=== PATIENT | male | born 1990 | race Asian ===

== ENCOUNTER 2024-11-29 12:38 | Outpatient (AMB) | payer OTHER, SELFPAY ==
--- NOTE | 2024-11-29 12:40 | MHC.PC.OV ---
Vital Signs 11/29/24 12:47 Height 5 ft 8 in Weight 170 lb 2 oz BMI 25.9 BP 114/73 Blood Pressure Location Lt brachial Position Sitting Respiration 16 Pulse 84 Pulse Source Pulse Oximeter Temp 97.8 F Temp Source Oral Pulse Oximetry (%) 98 Oxygen Delivery Method Room Air Intake Visit Reasons: headache, backache, neck pain/requesting blood wor Intake Note: patient here for new patient visit c/o headache, backache, neck pain and requesting labs Print Journalist Required: No Allergies No Known Allergies Allergy (Verified 11/29/24 12:55) Medication List - Last Reconciled 11/29/24 by Nicolás Cole CNP No Known Home Meds Tobacco use date assessed: 11/29/24 Dental Screening Dental Screen Date: 11/29/24 Did you have a dental visit in the last 12 months?: No Did you have a dental problem in the last 6 months where you did not have access to dental care?: No Was dental information given to patient?: Yes HPI HPI Comments History of Present Illness Details 34-year-old male presents to [facility] care. He is not on prescription medication. Relocated from [place] to [facility] a year ago. Prior PCP? - Dr. Mercy Damon, [place], [place] Last office visit/CPE/labs - About 2 years ago Acute issue(s) - None Past Medical History - None Surgical History - None Family History - Dad: DM - Mom: HTN Social History - Smokes 5 cigarettes daily for 10-12 years. Drinks 4-5 beers/shots of liquor once weekly. Vapes cannabis twice weekly - Has been making healthy dietary choices. Active but does not exercise. Generally sleep well Health maintenance - Last eye exam was several years ago. Referred to Ophthalmology for an eye exam - Last dental visit was about 2 years ago; encouraged to schedule an appointment with his dentist for routine dental care - Last tetanus vaccine was 2-3 years ago with former PCP. Record not currently available - Has not been vaccinated for the flu this season; declines vaccination Specialists - None PFSH Family History (Updated 11/29/24 @ 12:52 by Cyn Champion MA) Mother High blood pressure Father Diabetes Social History Housing: House Patient Tobacco Use Status: Current everyday Tobacco user Cigarettes Per Day: 5 e-Cigarette/Vaping Use: Never Used Second Hand Smoke Exposure: No Substance Use Type: Marijuana service: No Current occupational status: employed Current occupation: [employer] Current occupational exposures/hazards: No Cognitive needs: No Hearing needs: No Vision needs: No Questionnaire PHQ-9 Over the last 2 weeks, how often have you been bothered by any of the following problems? 1. Little interest or pleasure in doing things: not at all 2. Feeling down, depressed, or hopeless: not at all 3. Trouble falling or staying asleep, or sleeping too much: not at all 4. Feeling tired or having little energy: not at all 5. Poor appetite or overeating: not at all 6. Feeling bad about yourself - or that you are a failure or have let yourself or your family down: not at all 7. Trouble concentrating on things, such as reading the newspaper or watching television: not at all 8. Moving or speaking so slowly that other people could have noticed. Or the opposite - being so fidgety or restless that you have been moving around a lot more than usual: not at all 9. Thoughts that you would be better off or of hurting yourself in some way: not at all Total score: 0 Depression Screening Interpretation: Negative Depression Screening Done: Yes 22284 - PHQ-9 Billing: Yes Source: Developed by Drs. Rishi Reinoso, Dorene Martin, Kam Pardo and colleagues, with an educational mere from [employer]. Thrive Questionnaire Date Thrive assessed: 11/29/24 I am a: Patient What is your living situation today?: I have a steady place to live Within the past 12 months, did the food you bought not last and you didn't have the money to get more?: I choose not to answer this question Within the past 12 months, did you worry whether your food would run out before you got money to buy more?: I choose not to answer this question Do you have trouble paying for medicines?: Yes Do you have trouble getting transportation to medical appointments?: No Do you have trouble paying your heating and electricity bill?: I choose not to answer this question Do you have trouble taking care of your child, family member or friend?: I choose not to answer this question Do you have trouble with day-to-day activities such as bathing, preparing meals, shopping, managing finances, etc.?: No Are you currently unemployed and looking for a job?: No Are you interested in more education?: No Please select the resources that you would like help with: Utilities and None Currently or been in a relationship where the following occur: I choose not to answer THRIVE Score: 0 AUDIT C Alcohol Use Questionnaire (AUDIT-C) 1. How often do you have a drink containing alcohol?: 2-4 times a month 2. How many drinks containing alcohol do you have on a typical day when you are drinking?: 3 or 4 3. How often do you have six or more drinks on one occasion?: Monthly Total Score: 5 Score Reviewed/Action Taken: Yes BRIANNA-7 AMB Questionnaire BRIANNA-7 Date BRIANNA - 7 assessed: 11/29/24 Feeling nervous, anxious, or on edge: 0 = Not at all Not being able to stop or control worryin = Several days Worrying too much about different things: 1 = Several days Trouble relaxin = Several days Being so restless that it is hard to sit still: 1 = Several days Becoming easily annoyed or irritable: 1 = Several days Feeling afraid as if something awful might happen: 0 = Not at all Total BRIANNA-7 score (0-4 normal; 5-9 mild; 10-14 moderate; 15-21 severe): 5 Source: Developed by Drs. Rishi Reinoso, Dorene Martin, Kam Pardo and colleagues, with an educational mere from [employer]. BRIANNA-7 Assessment Billing BRIANNA-7 Assessment Tool: BRIANNA-7 Assessment 01698 Physical exam (Primary Care) Depression Screening Interpretation: Negative Currently or been in a relationship where the following occur: I choose not to answer Coding Level of Care Code New Pt Level 3 (24145) New Pt Prev Care 18-39yr(24001 Diagnoses Normal physical examination, routine Z00.00 Engages in vaping Z72.89 Smoking 1/2 pack a day or less F17.210 Eye exam, routine Z01.00 Laboratory tests ordered as part of a complete physical exam (CPE) Z00.00 Additional Codes BRIANNA-7 Assessment Billing - BRIANNA-7 Assessment Tool: BRIANNA-7 Assessment 82845 ([id number]) PHQ-9 - 29570 - PHQ-9 Billing: Yes ([id number]) Assessment & Plan Assessment & Plan (1) Normal physical examination, routine: Code(s): Z00.00 - Encounter for general adult medical examination without abnormal findings Category: Medical Plan: No significant functional limitation noted. Healthy diet and routine exercise encouraged. Perform lab workup follow-up for a telehealth visit for labs reviewed 2-4 weeks. Return sooner with symptoms or concerns. Verbalized understanding and agreed with the plan. (2) Engages in vaping: Code(s): Z72.89 - Other problems related to lifestyle Category: Medical Plan: He vapes cannabis twice weekly. Instructed on the health risks and complications of vaping and cessation encouraged. Verbalized understanding and agreed with the plan. (3) Smoking 1/2 pack a day or less: Code(s): F17.210 - Nicotine dependence, cigarettes, uncomplicated Category: Social Hx Plan: He smokes 5 cigarettes daily for the past 10-12 years. Instructed on the risks and complications of smoking and cessation encouraged. Declines medication treatment for smoking cessation and notes he will continue to make changes. Follow-up as needed. Verbalized understanding and agreed with the plan. (4) Eye exam, routine: Code(s): Z01.00 - Encounter for examination of eyes and vision without abnormal findings Category: Medical Plan: Last eye exam was several years ago. Referred to Ophthalmology for an eye exam. (5) Laboratory tests ordered as part of a complete physical exam (CPE): Code(s): Z00.00 - Encounter for general adult medical examination without abnormal findings Category: Medical Plan: Fasting labs ordered as part of a complete physical exam. Advised to fast for at least 10 hours before getting labs drawn. May drink water Verbalized understanding and agreed with treatment plan. Orders: Orders TSH reflex Free T4 Today Z00.00 - Encounter for general adult medical examination without abnormal findings Vitamin D 25-OH Total Today Z00.00 - Encounter for general adult medical examination without abnormal findings Complete Blood Count Auto Diff Today Z00.00 - Encounter for general adult medical examination without abnormal findings Comprehensive [place]. Panel Fast Today Z00.00 - Encounter for general adult medical examination without abnormal findings Lipid Panel Today Z00.00 - Encounter for general adult medical examination without abnormal findings Microalbumin, Random (w Creat) Today Z00.00 - Encounter for general adult medical examination without abnormal findings UA CC w/rflx Micro + Cult Today Z00.00 - Encounter for general adult medical examination without abnormal findings Referrals Ophthalmology Referral Z01.00 - Encounter for examination of eyes and vision without abnormal findings
[2024-11-29 12:47] VITALS: BP 114/73; PULSE 84; RESP 16; TEMP 36.6; O2SAT 98; BMI 25.9
--- OUTSIDE RECORDS SUMMARY | 2024-11-29 13:48 | XMS_ITS | Patient Health Record ---
Author Organization [facility] Address [address] [place] [id number] Support Name Relationship Address Phone Rosas Olivier Emergency Contact [address] [place], [place] [id number] Rosas Valderrama Guarantor Unknown [phone] Allergies No Known Allergies Reason For Referral No Information Plan Of Treatment No Information Insurance Providers Payer Name Payer Address Payer Phone Subscriber Number Group Number Insured Name Patient Relationship to Insured Coverage Start Date Coverage End Date [facility] [address] [address] [place] [address] [id number] [facility] [id number] Rosas Valderrama Self - patient is the insured
== END 2024-11-29 13:08 | disposition home or self-care (01) ==
LOC: HO.HMCFM 12:39
PROVIDERS: PCP Nurse Practitioner Family; Visit Provider Nurse Practitioner Family
DX: Z00.00 Encounter for general adult medical examination without abnormal findings (principal); Z72.89 Other problems related to lifestyle; F17.210 Nicotine dependence, cigarettes, uncomplicated

== ENCOUNTER → 2024-11-29 12:38 | Outpatient (BNVA) | payer OTHER, SELFPAY | PROVIDERS: PCP Nurse Practitioner Family; Visit Provider Nurse Practitioner Family | DX: Z00.00 Encounter for general adult medical examination without abnormal findings (principal); F17.210 Nicotine dependence, cigarettes, uncomplicated; Z72.89 Other problems related to lifestyle | CPT/HCPCS: 96127; 99385 ==

== ENCOUNTER 2024-12-15 12:33 | Outpatient (REF) | payer OTHER, SELFPAY ==
[2024-12-15 14:12] LABS: MANUAL DIFF FLAG NO
[2024-12-15 14:29] LABS: Hematocrit 47.7 % (42.0-52.0); Hemoglobin 15.9 g/dl (14.0-18.0); Imm Gran Abs Auto 0.04 X10*3/uL (0.00-0.03); Imm Gran Pct Auto 0.5 % (0.0-0.4); Lymphocytes Absolute Auto 2.5 X10*3/uL (1.2-4.9); Mean Corpuscular HGB Conc 33.3 g/dl (31.0-36.0); Mean Corpuscular Hemoglobin 28.1 pg (27.0-33.0); Mean Corpuscular Volume 84.3 fL (80.0-98.0); NRBC Abs Auto 0.000 X10*3/uL (0.0-0.012); NRBC Pct Auto 0.0 /100WBC (0.0-0.2); Platelet Count 206 X10*3/uL (160-400); Red Blood Count 5.66 X10*6/uL (4.60-5.80); White Blood Count 7.9 X10*3/uL (4.8-10.8)
[2024-12-15 15:06] LABS: Alanine Aminotransferase 83 U/L (0-40); Albumin Level 4.7 g/dL (3.5-5.0); Alkaline Phosphatase 67 U/L (39-117); Anion Gap 9 (12-20); Aspartate Amino Transferase 32 U/L (5-37); Blood Urea Nitrogen 11 mg/dL (9-16); Calcium 9.3 mg/dL (8.4-10.2); Carbon Dioxide 29 mmol/L (22-29); Chloride 107 mmol/L (96-108); Cholesterol 217 mg/dL (<200); Estimated Glomerular Filt Rate > 60; HDL Cholesterol 44 mg/dL (>40); Potassium 4.4 mmol/L (3.3-5.1); Sodium 141 mmol/L (135-145); Total Protein 7.1 g/dL (6.5-8.0); Triglycerides 110 mg/dL (<150)
--- OUTSIDE RECORDS SUMMARY | 2024-12-15 15:45 | XMS_ITS | Patient Health Record ---
Author Organization [facility] Address [address] [place] [id number] Support Name Relationship Address Phone Rosas Olivier Emergency Contact [address] [place], [place] [id number] Rosas Valderrama Guarantor Unknown [phone] Allergies No Known Allergies Reason For Referral No Information Plan Of Treatment No Information Insurance Providers Payer Name Payer Address Payer Phone Subscriber Number Group Number Insured Name Patient Relationship to Insured Coverage Start Date Coverage End Date [facility] [address] [address] [place] [phone] [id number] [facility] [id number] Rosas Valderrama Self - patient is the insured
[2024-12-15 17:48] LABS: Appearance Urine Clear; Glucose Urine UA Negative (Negative); PH 6.0 (5.0-9.0); Specific Gravity - Urine 1.010 (1.005-1.025)
== END 2024-12-15 12:34 | disposition home or self-care (01) ==
LOC: HO.WFDLDS 12:33
PROVIDERS: Visit Provider Nurse Practitioner Family
DX: Z00.00 Encounter for general adult medical examination without abnormal findings (principal)
CPT/HCPCS: 36415; 80053; 80061; 81003; 82306; 82570; 84443; 85025

== ENCOUNTER 2024-12-16 15:18 | Outpatient (AMB) | payer OTHER, SELFPAY ==
--- NOTE | 2024-12-16 13:09 | A.OFFPC_ITS ---
Intake Visit Reasons: Tele 2-4 weeks labs review Intake Note: Follow up lab results. Java Swing Developer Required: No Allergies No Known Allergies Allergy (Verified 12/16/24 15:16) Tobacco use date assessed: 12/16/24 Dental Screening Dental Screen Date: 11/29/24 HPI HPI Comments History of Present Illness Details 34-year-old male presents for a teleheal th visit for review of recent lab results. He notes that he consumed significant amount of red meat. He drinks 5-6 beers or mixed drinks once a week on weekends. No acute symptoms at this time. PFSH Family History (Updated 11/29/24 @ 12:52 by GISELA Morris) Mother High blood pressure Father Diabetes Social History (Updated 11/29/24 @ 12:47 by GISELA Morris) Housing: House Patient Tobacco Use Status: Current everyday Tobacco user Cigarettes Per Day: 5 Years Smoked: 12 e-Cigarette/Vaping Use: Never Used Second Hand Smoke Exposure: No Substance Use Type: Marijuana service: No Current occupational status: employed Current occupation: [employer] Current occupational exposures/hazards: No Cognitive needs: No Hearing needs: No Vision needs: No Questionnaire Thrive Questionnaire Date Thrive assessed: 11/29/24 AUDIT C Alcohol Use Questionnaire (AUDIT-C) 1. How often do you have a drink containing alcohol?: 2-4 times a month 2. How many drinks containing alcohol do you have on a typical day when you are drinking?: 5 or 6 3. How often do you have six or more drinks on one occasion?: Never Total Score: 4 BRIANNA-7 AMB Questionnaire BRIANNA-7 Date BRIANNA - 7 assessed: 11/29/24 Source: Developed by Drs. Rishi Reinoso, Dorene Martin, Kam Pardo and colleagues, with an educational mere from [employer]. Review of Systems Const Details: Denies chills, Denies fatigue, Denies fever(s), Denies headache(s) and Denies weakness Cardiac Denies chest pain, Denies claudication, Denies leg edema, Denies lightheadedness, Denies palpitations, Denies dyspnea, Denies dyspnea on exertion, Denies orthopnea and Denies other (Loss of consciousness) Resp Denies cough, Denies excessive phlegm production, Denies dyspnea, Denies dyspnea on exertion, Denies snoring and Denies wheezing Physical exam (Primary Care) Tobacco/Smoking Status: Tobacco use Status Tobacco use date assessed 11/29/24 12/16/24 13:09 Patient Tobacco Use Status Current everyday Tobacco 12/16/24 13:09 e-Cigarette/Vaping Use Never Used 12/16/24 13:09 Thrive Assessment: Date of Thrive Assessment Date Thrive assessed 11/29/24 12/16/24 13:09 Const Other: Patient is alert and oriented x3 Telehealth Telehealth Telehealth Platform: Telephone Location of provider rendering services: practice address Location of patient: address on file Patient Identification confirmed using: Name, : Yes Telehealth method: voice only Patient verbally consented to treatment: Yes Patient verbally consented to billing insurance company: Yes Patient informed of any privacy concerns related to visit: Yes Coding Level of Care Code Tele Est Pt Level 3 (77476) Diagnoses Hypercholesteremia E78.00 Elevated ALT measurement R74.01 Vitamin D deficiency E55.9 Time Spent (min) 15 Assessment & Plan Assessment & Plan (1) Hypercholesteremia: Code(s): E78.00 - Pure hypercholesterolemia, unspecified Category: Medical Plan: Recent total cholesterol and LDL levels are elevated, 217 and 151 respectively, triglycerides and HDL levels are normal. He consumed significant amount of red meat. He drinks 5-6 beers or mixed drinks once a week on weekends. Advised to limit foods high in saturated fat and avoid foods high in trans fat. Encouraged to cut down or avoid drinking alcohol. No more than 2 drinks daily or 5 weekly. Routine exercise encouraged. Fast for 10-12 hours, may drink water, and perform lipid panel blood work a few days before next visit. Follow-up for a telehealth visit in 2 months. Return sooner with symptoms or concerns. Verbalized understanding and agreed with plan. (2) Elevated ALT measurement: Code(s): R74.01 - Elevation of levels of liver transaminase levels Category: Medical Plan: Recent ALT level is elevated, 83, AST and total bilirubin level are normal. He reports history of elevated liver enzymes. Healthy diet and weight management and encouraged. Encouraged to cut down or avoid drinking alcohol. Will recheck liver panel in 2 months. Verbalized understanding and agreed with the plan. (3) Vitamin D deficiency: Code(s): E55.9 - Vitamin D deficiency, unspecified Category: Medical Plan: Recent vitamin-D level is significantly low, 10.6. Vitamin D3 51101 units weekly ordered, advised to take as prescribed. Will recheck vitamin-D level in 2 months. Verbalized understanding and agreed with the plan. Orders: Orders Lipid Panel 2 Months E78.00 - Pure hypercholesterolemia, unspecified Vitamin D 25-OH Total 2 Months E55.9 - Vitamin D deficiency, unspecified Liver Panel 2 Months R74.01 - Elevation of levels of liver transaminase levels Medications: New cholecalciferol (vitamin D3) 1,250 mcg PO QWEEK 8 tabs 0RF 8 weeks
== END 2024-12-16 15:51 | disposition home or self-care (01) ==
LOC: HO.HMCFM 15:18
PROVIDERS: PCP Nurse Practitioner Family; Visit Provider Nurse Practitioner Family
DX: E78.00 Pure hypercholesterolemia, unspecified (principal); R74.01 Elevation of levels of liver transaminase levels; E55.9 Vitamin D deficiency, unspecified